=== PATIENT | male | born 1995 | race Caucasian/White ===

== ENCOUNTER → 2024-04-05 15:25 | Outpatient (REF) | payer BC, SELFPAY | LOC: HWRAD 15:25 | PROVIDERS: ATTENDING PHYSICIAN Registered Nurse | DX: M79.671 Pain in right foot (principal) | CPT/HCPCS: 73610; 73630 ==

== ENCOUNTER → 2025-02-28 11:21 | Outpatient (REF) | payer BC, SELFPAY | LOC: DHSLP 11:21 | PROVIDERS: ATTENDING PHYSICIAN Registered Nurse | DX: G47.30 Sleep apnea, unspecified (principal); R06.83 Snoring | CPT/HCPCS: 95800 ==